=== PATIENT | female | born 1995 | race Caucasian/White ===

== ENCOUNTER 2023-11-06 14:59 | Emergency (ER) | payer BC, MEDICAID, SELFPAY ==
--- NOTE | ~2023-11-06 | US_ITS ---
EXAMINATION: US OB <=14 wk fetus w TV INDICATION: 11 weeks, vag bleeding TECHNIQUE: Sonography of the pelvis was performed by transabdominal and transvaginal techniques. COMPARISON: None. RESULT: Uterus: 9.3 x 5.4 x 7.0 cm. Anteverted. Homogenous myometrium. Intrauterine gestational sac: Single present. Yolk sac: Not visualized. Embryo: Single present. [place] rump length: 1.99 cm, corresponding gestational age 8 weeks, 5 days. Gestational heart rate: absent, 0 bpm. Subgestational hematoma: Absent . Right ovary: 2.4 x 1.4 x 1.5 cm. Vascular flow is present. No adnexal mass. Left ovary: 2.9 x 2.1 x 2.3 cm. Vascular flow is present. 1.3 cm simple cyst or dominant follicle. Pelvis free fluid: None. IMPRESSION: Sonographic findings of demise. No heart motion detected at a crown-rump length greater t peterson 7 mm. Reviewed, dictated and finalized at location K. IMPRESSION: Sonographic findings of demise. No heart motion detected at a crown -rump length greater than 7 mm.
[2023-11-06 15:00] VITALS: BP 131/68; PULSE 105; RESP 16; TEMP 36.7; O2SAT 98
[2023-11-06 15:17] LABS: Basophils Percent Auto 0.3 % (0.2-1.2); Eosinophils Absolute Auto 0.1 K/mm3 (0-0.3); Eosinophils Percent Auto 1.4 % (0-4.4); Hematocrit 40.9 % (37.0-47.0); Hemoglobin 14.3 g/dL (12.0-15.0); Immature Granulocyte Absolute 0.02 K/mm3 (0.00-0.031); Immature Granulocyte Percent A 0.2 % (0-0.5); Lymphocytes Absolute Auto 2.46 K/mm3 (0.9-3.2); Lymphocytes Percent Auto 27.8 % (18.3-44.2); Mean Corpuscular Hemoglobin 31.5 pg (26-34); Mean Corpuscular Volume 90.1 fl (80-100); Mean Platelet Volume 10.9 fl (7.4-10.4); Monocytes Absolute Auto 0.7 K/mm3 (0.1-0.6); Monocytes Percent Auto 7.6 % (2.6-8.5); Neutrophils Absolute Auto 5.6 K/mm3 (1.3-6.7); Neutrophils Percent Auto 62.7 % (45.5-73.1); Platelet Count Result 258 k/mm3 (150-375); Red Blood Count 4.54 M/mm3 (4.2-5.4); Red Cell Distribution Width 12.8 % (11.5-14.5); White Blood Count 8.9 K/mm3 (4.5-10.0)
[2023-11-06 15:27] LABS: Alanine Aminotransferase 17 U/L (6-35); Albumin Level 4.6 g/dL (3.5-5.1); Alkaline Phosphatase 79 U/L (38-126); Anion Gap 11 mmol/L (4-12); Aspartate Amino Transferase 24 U/L (14-36); Bilirubin,Total 0.4 mg/dL (0.2-1.3); Blood Urea Nitrogen 8 mg/dL (7-17); Calcium 9.5 mg/dL (8.4-10.2); Carbon Dioxide 26 mmol/L (22-30); Chloride 101 mmol/L (98-107); Estimated CRCL calculation 117 ml/min; Estimated Glomerular Filt Rate > 60; Glucose 95 mg/dL (65-110); Potassium 4.1 mmol/L (3.4-5.0); Sodium 138 mmol/L (137-145)
--- NOTE | 2023-11-06 18:09 | ED.PREGNANCY ---
HPI - General Chief complaint: Vaginal Bleeding Stated complaint: , BLEEDING, ABD CRAMPS Time Seen by Provider: 11/06/23 18:04 Source: patient Mode of arrival: ambulatory Limitations: no limitations History of Present Illness HPI Narrative: Patient is a 28-year-old female who presents the ED with report of vaginal bleeding. Patient is (Hx of twin gestation) and currently approx 11 weeks gestation[address] An with OBGYN @ [facility]. reports she was diagnosed with a demise last week via ultrasound. She is scheduled for a D&C on 11/11. states she began having vaginal bleeding and lower abdominal cramping today. States bleeding has been fairly light, but increasing throughout the day. She has not noticed any significant clots. Denies dizziness, lightheadedness, fevers, dysuria, hematuria. Related Data Allergies Allergy/AdvReac Type Severity Reaction Status Date / Time No Known Allergies Allergy Unverified 04/13/15 18:17 Review of Systems Review of Systems: All systems reviewed & are unremarkable except as noted in HPI. All systems reviewed & are unremarkable except as noted in HPI and below Exam Narrative: GENERAL: Well appearing, well-nourished, non-toxic, in no acute distress. HEAD: Normocephalic, atraumatic. RESPIRATORY: Airway patent, respirations nonlabored. CARDIOVASCULAR: Regular rate and rhythm ABDOMINAL: Soft, nontender, nondistended. Normoactive BS. PELVIC: Normal external genitalia. Small amount of light brown vaginal discharge in vaginal vault. No bright red bleeding. Cervical os appears closed, cervix appears unremarkable. MUSCULOSKELETAL: Moves all extremities. No gross deformities. SKIN: Warm, dry, normal color. NEURO: A&O X3. Speech clear. PSYCHIATRIC: Appropriate mood and affect. Normal interaction. Course Vital Signs Vital signs: Vital Signs Temperature 98.1 F 11/06/23 15:00 Pulse Rate 105 H 11/06/23 15:00 Respiratory Rate 16 11/06/23 15:00 Blood Pressure 131/68 11/06/23 15:00 Pulse Oximetry 98 11/06/23 15:00 Temperature 98.0 F 11/06/23 20:01 Pulse Rate 99 11/06/23 20:01 Respiratory Rate 17 11/06/23 20:01 Blood Pressure 124/62 11/06/23 20:01 Pulse Oximetry 97 08/24/24 20:01 MDM - OB/Uterine Contractions MDM Narrative Medical decision making narrative: Patient is A positive. No indication for RhoGAM. Beta quant today 8249. No records to compare to. Remainder basic laboratory studies are unremarkable. Ultrasound continues to show evidence of demise. Measuring 8 weeks 5 days. Patient is aware this. Pelvic exam performed w/o evidence of hemorrhage. Cervix appears unremarkable. Small amount of brown vaginal discharge. No bright red bleeding noted. She has been hemodynamically stable throughout ED stay. H&H is stable. Discussed case with Dr. Susan MILIAN conference center manager for Dr. An @ [facility], recommended expectant management, if bleeding becomes more severe, patient to present to [facility] for D&C over the weekend. Otherwise call Dr. An's office Wednesday to make sooner f/u appointment. Discussed these recommendations with patient. She is in agreement with this plan. Feels comfortable discharge home. Discussed additional return precautions. Patient voiced understanding. Discharged in stable condition. Medical Records Attestation: I reviewed the patient's medical records. Lab Data Attestation: I reviewed the patient's lab results. 11/06/23 15:08 11/06/23 15:08 Labs: Lab Results 11/06/23 11/06/23 11/06/23 Range/Units 15:08 15:08 15:09 WBC 8.9 (4.5-10.0) K/mm3 RBC 4.54 (4.2-5.4) M/mm3 Hgb 14.3 (12.0-15.0) g/dL Hct 40.9 (37.0-47.0) % MCV 90.1 (80-100) fl MCH 31.5 (26-34) pg MCHC 35.0 (32-36) g/dl RDW 12.8 (11.5-14.5) % Plt Count 258 (150-375) k/mm3 MPV 10.9 H (7.4-10.4)
[2023-11-06 20:01] VITALS: BP 124/62; PULSE 99; RESP 17; TEMP 36.7; O2SAT 97
== END 2023-11-06 20:05 | disposition home or self-care (01) ==
PROVIDERS: Emergency Provider Physician Assistant
DX: O02.1 Missed abortion (principal)
CPT/HCPCS: 36415; 76801; 76817; 80053; 84702; 85025; 85461; 86850; 86900; 86901; 99284